=== PATIENT | male | born 1950 | race Caucasian/White ===

== ENCOUNTER 2016-10-14 10:31 | Emergency (ER) | payer OTHER ==
[~2016-10-14] VITALS: Ht 177.8 cm; Wt 159.8 kg
[~2016-10-14 10:31] MED LIST: ADVAIR 500/501 DISK IH; AFEDITAB CR60 MG PO; ALBUTEROL SULF8.5 GM IH; BENICAR HCT 401 EAC1 PO; DELTASONE10 MG PO; DELTASONE20 MG PO; DEPAKOTE500 MG PO; DILANTIN100 MG PO; DIVALPROEX SOD500 MG PO; GLIPIZIDE10 M1 PO; GLIPIZIDE10 MG PO; GLUCOPHAGE1000 MG PO; KEPPRA1000 MG PO; LASIX20 MG PO; LEVETIRACETAM500 MG PO; LEVOTHROID,SYN0.1 MG PO; LIPITOR40 MG PO; LOFIBRA54 MG PO; NIFEDICAL XL60 MG PO; PREDNISONE10 MG PO; PREDNISONE5 MG PO; PROCARDIA XL60 MG PO; PROVENTIL,2.5 MG/3 M IH; SPIRIVA1 INHALATI IH; SYNTHROID100 MCG PO; Tylenol Regular Stre PO; ZITHROMAX Z-PA250 MG PO; ZITHROMAX250 MG PO
[2016-10-14 11:15] LABS: EOSINOPHIL (%) 2.3 % (0-5); EOSINOPHIL COUNT 0.2 K/uL (0-0.3); HEMATOCRIT 41.7 % (38.0-50.0); IMMATURE GRANULOCYTE (%) 0.7 % (0.0-0.7); IMMATURE GRANULOCYTE COUNT 0.1 K/uL; INSTRUMENT ABS NEUTROPHIL CT 5.8 K/uL; MCH 29.4 PG (29.0-34.0); MCHC 32.4 G/DL (30.0-36.0); MCV 90.8 FL (86-99); MEAN PLAT.VOLUME 9.7 uM^3 (9.0-12.4); MONOCYTE (%) 6.8 % (3-12); MONOCYTE COUNT 0.6 K/uL (0-0.8); NEUTROPHIL (%) 66.9 % (45-76); NEUTROPHIL COUNT 5.8 K/uL (1.8-6.4); PLATELET COUNT 233 K/uL (156-360); RBC DIS.WIDTH-CV 14.1 % (11.8-14.6); RBC DIS.WIDTH-SD 47.2 % (39-53); RED BLOOD COUNT 4.59 M/uL (4.00-5.50); WHITE BLOOD COUNT 8.7 K/uL (4.1-10.2)
[2016-10-14 11:27] LABS: CHLORIDE 95 mEq/L (99-109); SODIUM 138 mEq/L (136-147)
[2016-10-14 11:29] LABS: GLUCOSE 86 mg/dL (70-99)
[2016-10-14 11:30] LABS: ANION GAP 9 MEQ/L (2-14)
[2016-10-14 11:33] LABS: GFR ESTIMATE (CALCULATED) 54 mL/min/
[2016-10-14 11:34] LABS: UREA NITROGEN (BUN) 21 mg/dL (9-23)
[2016-10-14] MEDS ORDERED: LOTRISONE15 GM TP (12:18)
[2016-10-14 13:08] VITALS: BP 127/72
== END 2016-10-14 13:36 | disposition home or self-care (01) ==
LOC: EME 10:31
PROVIDERS: Emergency Medicine
DX: R56.9 Unspecified convulsions (principal); R09.02 Hypoxemia; J45.909 Unspecified asthma, uncomplicated; F32.9 Major depressive disorder, single episode, unspecified; E11.9 Type 2 diabetes mellitus without complications; E78.5 Hyperlipidemia, unspecified; I10 Essential (primary) hypertension; J44.9 Chronic obstructive pulmonary disease, unspecified; E03.9 Hypothyroidism, unspecified; Z87.891 Personal history of nicotine dependence; B36.9 Superficial mycosis, unspecified; R06.02 Shortness of breath
CPT/HCPCS: 71010; 80048; 80164; 85025; 99281; 99284

== ENCOUNTER 2017-04-25 08:14 | Emergency (ER) | payer OTHER ==
[~2017-04-25] VITALS: Ht 180.3 cm; Wt 164.8 kg
[~2017-04-25 08:14] MED LIST changes: +LOTRISONE15 GM TP
[2017-04-25 09:09] LABS: HEMATOCRIT 39.6 % (38.0-50.0); MCH 28.6 PG (29.0-34.0); MCHC 31.3 G/DL (30.0-36.0); MCV 91.2 FL (86-99); MEAN PLAT.VOLUME 9.5 uM^3 (9.0-12.4); PLATELET COUNT 259 K/uL (156-360); RBC DIS.WIDTH-CV 14.3 % (11.8-14.6); RBC DIS.WIDTH-SD 47.5 % (39-53); RED BLOOD COUNT 4.34 M/uL (4.00-5.50); WHITE BLOOD COUNT 9.1 K/uL (4.1-10.2)
[2017-04-25 09:18] LABS: CHLORIDE 98 mEq/L (99-109); POTASSIUM 4.3 mEq/L (3.7-5.4); SODIUM 144 mEq/L (136-147)
[2017-04-25 09:19] LABS: GLUCOSE 146 mg/dL (70-99)
[2017-04-25 09:21] LABS: ANION GAP 10 MEQ/L (2-14)
[2017-04-25 09:23] LABS: GFR ESTIMATE (CALCULATED) > 59 mL/min/ (58.99-99999)
[2017-04-25 09:24] LABS: UREA NITROGEN (BUN) 15 mg/dL (9-23)
[2017-04-25 09:30] LABS: TROP-I INTERPRETATION NEGATIVE; TROPONIN-I < 0.01 ng/mL (0.0-0.30)
[2017-04-25 10:24] VITALS: BP 135/65
== END 2017-04-25 10:28 | disposition home or self-care (01) ==
LOC: EME 08:14
PROVIDERS: Nurse Practitioner Family
DX: R06.00 Dyspnea, unspecified (principal); J44.9 Chronic obstructive pulmonary disease, unspecified; Z99.81 Dependence on supplemental oxygen; E11.9 Type 2 diabetes mellitus without complications; E78.5 Hyperlipidemia, unspecified; Z79.84 Long term (current) use of oral hypoglycemic drugs; I10 Essential (primary) hypertension; F32.9 Major depressive disorder, single episode, unspecified; E03.9 Hypothyroidism, unspecified; R56.9 Unspecified convulsions; Z87.891 Personal history of nicotine dependence
CPT/HCPCS: 71020; 80048; 84484; 85027; 99281; 99284

== ENCOUNTER 2017-05-14 13:43 | Emergency (ER) | payer OTHER ==
[~2017-05-14] VITALS: Ht 180.3 cm; Wt 161.6 kg
[2017-05-14 13:53] VITALS: BP 127/58
[2017-05-14 14:34] LABS: HEMOGLOBIN 11.6 G/DL (12.5-16.6); MCH 28.2 PG (29.0-34.0); MCHC 31.4 G/DL (30.0-36.0); PLATELET COUNT 315 K/uL (156-360); RBC DIS.WIDTH-CV 14.6 % (11.8-14.6); RBC DIS.WIDTH-SD 48.8 % (39-53); RED BLOOD COUNT 4.11 M/uL (4.00-5.50); WHITE BLOOD COUNT 8.3 K/uL (4.1-10.2)
[2017-05-14 14:45] LABS: CHLORIDE 95 mEq/L (99-109); SODIUM 140 mEq/L (136-147)
[2017-05-14 14:47] LABS: GLUCOSE 184 mg/dL (70-99)
[2017-05-14 14:51] LABS: CREATININE 1.4 mg/dL (0.6-1.3); GFR ESTIMATE (CALCULATED) 54 mL/min/ (58.99-99999); UREA NITROGEN (BUN) 19 mg/dL (9-23)
== END 2017-05-14 16:43 | disposition home or self-care (01) ==
LOC: EME 13:43
PROVIDERS: Nurse Practitioner Family
DX: G40.909 Epilepsy, unspecified, not intractable, without status epilepticus (principal); J45.909 Unspecified asthma, uncomplicated; I10 Essential (primary) hypertension; E78.5 Hyperlipidemia, unspecified; E11.9 Type 2 diabetes mellitus without complications; E03.9 Hypothyroidism, unspecified; F32.9 Major depressive disorder, single episode, unspecified; Z87.891 Personal history of nicotine dependence; Z79.84 Long term (current) use of oral hypoglycemic drugs
CPT/HCPCS: 80048; 81003; 85027; 99281; 99283

== ENCOUNTER 2017-07-04 08:25 | Inpatient (IN) | payer OTHER ==
[~2017-07-04] VITALS: Ht 180.3 cm; Wt 156.6 kg
[~2017-07-04 08:25] MED LIST changes: -SYNTHROID100 MCG PO; +SYNTHROID125 MCG PO
[2017-07-04 09:08] LABS: BASOPHIL (%) 0.3 % (0-1); EOSINOPHIL COUNT 0.1 K/uL (0-0.3); HEMATOCRIT 36.3 % (38.0-50.0); HEMOGLOBIN 11.3 G/DL (12.5-16.6); IMMATURE GRANULOCYTE (%) 1.2 % (0.0-0.7); LYMPHOCYTE (%) 13.5 % (15-42); LYMPHOCYTE COUNT 1.5 K/uL (1.0-2.8); MCH 27.3 PG (29.0-34.0); MCHC 31.1 G/DL (30.0-36.0); MCV 87.7 FL (86-99); MONOCYTE (%) 7.1 % (3-12); MONOCYTE COUNT 0.8 K/uL (0-0.8); NEUTROPHIL (%) 76.9 % (45-76); NEUTROPHIL COUNT 8.8 K/uL (1.8-6.4); PLATELET COUNT 369 K/uL (156-360); RBC DIS.WIDTH-CV 14.8 % (11.8-14.6); RED BLOOD COUNT 4.14 M/uL (4.00-5.50); WHITE BLOOD COUNT 11.4 K/uL (4.1-10.2)
[2017-07-04 09:18] LABS: CHLORIDE 95 mEq/L (99-109); POTASSIUM 4.1 mEq/L (3.7-5.4); SODIUM 140 mEq/L (136-147)
[2017-07-04 09:20] LABS: GLUCOSE 157 mg/dL (70-99)
[2017-07-04 09:24] LABS: CREATININE 1.1 mg/dL (0.6-1.3); GFR ESTIMATE (CALCULATED) > 59 mL/min/ (58.99-99999)
[2017-07-04 09:25] LABS: UREA NITROGEN (BUN) 16 mg/dL (9-23)
[2017-07-04] MEDS ORDERED: AMLODIPINE BESY10 MG PO (11:58)
[2017-07-04] MEDS ORDERED: SPIRIVA RESPIMAT4 GM IH (11:59)
[2017-07-04] MEDS ORDERED: OLMESARTAN-HCT1 EAC2 PO (12:01)
[2017-07-04] MEDS ORDERED: FENOFIBRATE54 M1 PO (12:01)
[2017-07-04] MEDS ORDERED: VENTOLIN HFA18 GM IH (12:03)
[2017-07-04] MEDS ORDERED: DIVALPROEX SOD250 MG PO (12:05)
[2017-07-04 16:05] VITALS: BP 140/70
[2017-07-04 17:23] VITALS: BP 140/70
[2017-07-04 20:03] VITALS: BP 135/65
[2017-07-04 23:52] VITALS: BP 137/63
[2017-07-05 04:12] VITALS: BP 143/63
[2017-07-05 04:25] LABS: HEMATOCRIT 35.6 % (38.0-50.0); HEMOGLOBIN 11.1 G/DL (12.5-16.6); MCH 27.3 PG (29.0-34.0); MCHC 31.2 G/DL (30.0-36.0); MCV 87.7 FL (86-99); PLATELET COUNT 389 K/uL (156-360); RBC DIS.WIDTH-CV 14.9 % (11.8-14.6); RBC DIS.WIDTH-SD 48.8 % (39-53); RED BLOOD COUNT 4.06 M/uL (4.00-5.50); WHITE BLOOD COUNT 10.4 K/uL (4.1-10.2)
[2017-07-05 04:45] LABS: CHLORIDE 94 mEq/L (99-109); SODIUM 139 mEq/L (136-147)
[2017-07-05 04:47] LABS: GLUCOSE 132 mg/dL (70-99)
[2017-07-05 04:51] LABS: CREATININE 1.1 mg/dL (0.6-1.3); GFR ESTIMATE (CALCULATED) > 59 mL/min/ (58.99-99999)
[2017-07-05 04:52] LABS: UREA NITROGEN (BUN) 23 mg/dL (9-23)
[2017-07-05 05:05] LABS: POTASSIUM 5.1 mEq/L (3.7-5.4)
[2017-07-05 08:00] VITALS: BP 162/72
[2017-07-05 11:30] VITALS: BP 135/65
[2017-07-05 16:00] VITALS: BP 124/58
[2017-07-05 20:06] VITALS: BP 125/55
[2017-07-06 00:41] VITALS: BP 121/58
[2017-07-06 04:11] VITALS: BP 137/68
[2017-07-06 08:39] VITALS: BP 145/63
[2017-07-06] MEDS ORDERED: PREDNISONE10 MG PO (10:05)
[2017-07-06] MEDS ORDERED: CEFTIN500 MG PO (10:06)
[2017-07-06 12:27] VITALS: BP 142/64
== END 2017-07-06 14:00 | disposition home or self-care (01) | DRG 189 ==
LOC: EME 08:25 → EDOF 12:00 → 4SOUTH 12:00 → EDOF 12:03 → ENRESERV 12:03 → 4SOUTH 16:42
PROVIDERS: Emergency Medicine; Internal Medicine; Physician Assistant
DX: J96.21 Acute and chronic respiratory failure with hypoxia (principal); J18.9 Pneumonia, unspecified organism; J44.0 Chronic obstructive pulmonary disease with (acute) lower respiratory infection; J44.1 Chronic obstructive pulmonary disease with (acute) exacerbation; Z68.42 Body mass index [BMI] 45.0-49.9, adult; G47.33 Obstructive sleep apnea (adult) (pediatric); E66.01 Morbid (severe) obesity due to excess calories; I27.20 Pulmonary hypertension, unspecified; G40.909 Epilepsy, unspecified, not intractable, without status epilepticus; E03.9 Hypothyroidism, unspecified; E11.9 Type 2 diabetes mellitus without complications; E78.5 Hyperlipidemia, unspecified; I10 Essential (primary) hypertension; K21.9 Gastro-esophageal reflux disease without esophagitis; I95.1 Orthostatic hypotension; J98.4 Other disorders of lung; R63.1 Polydipsia; Z60.2 Problems related to living alone; Z87.891 Personal history of nicotine dependence; Z79.84 Long term (current) use of oral hypoglycemic drugs; Z99.81 Dependence on supplemental oxygen; Z79.51 Long term (current) use of inhaled steroids; Z80.0 Family history of malignant neoplasm of digestive organs; Z82.5 Family history of asthma and other chronic lower respiratory diseases
CPT/HCPCS: 71045; 71250; 80048; 82948; 85025; 85027; 87040; 87070; 87205; 87502; 93005; 94640; 94640 76; 94667; 94668; 94799; 99202; 99281; 99285; J0696; J1650; J1815; J2920; J7030; J7644